=== PATIENT | female | born 1985 | race Caucasian/White ===

== ENCOUNTER 2016-08-26 14:59 | Emergency (ER) | payer OTHER ==
[~2016-08-26] VITALS: Ht 162.6 cm; Wt 75.7 kg
[~2016-08-26 14:59] MED LIST: SYNTHROID0.075 MG PO
[2016-08-26 15:14] VITALS: BP 120/80
--- NOTE | 2016-08-26 15:50 | NUR ---
PATIENT TO BED 6 AT THIS TIME.
--- NOTE | 2016-08-26 15:52 | NUR ---
30/F BIB SELF C/O N/V/D ; MULTIPLE EPISODES, FATIGUED, SUBJECTIVE FEVER X 1 DAY. HX OF DM, HYPOTHYROID, POLYCYSTIC OVARIAN DISEASE.SKIN IS PINK/WARM/DRY; AAOX4 WITH EVEN AND STEADY GAIT; LUNGS CLEAR BL; HR EVEN AND REGULAR; PT DENIES ANY CP, SOB, OR COUGH AT THIS TIME; PATIENT STATES PAIN OF 0/10 AT THIS TIME; VSS; PATIENT POSITIONED FOR COMFORT; HOB ELEVATED; BEDRAILS UP X2; BED DOWN. ER MD MADE AWARE OF PT STATUS.
--- NOTE | 2016-08-26 15:55 | NUR ---
ER MD DR MEDRANO EVALUATING PT AT BEDSIDE
[2016-08-26] MEDS ORDERED: HYDROcodone/APAP 5/325 MG 1 TAB TAB PO ONE (16:05)
[2016-08-26] MEDS ORDERED: ONDANSETRON 4 MG ODT PO ONE (16:05)
[2016-08-26] MEDS ORDERED: METOCLOPRAMIDE 10 MG TAB PO ONE (16:30)
--- NOTE | 2016-08-26 16:35 | NUR ---
LAB AT BEDSIDE
--- NOTE | 2016-08-26 16:36 | NUR ---
PO CHALLENGE; GAVE FLUID TO PT. PT NAUSEAED; ER MD DR MEDRANO NOTIFIED.
[2016-08-26] MEDS ORDERED: LIDOCAINE VISCOUS 2% 20 ML UDC PO ONE (17:25)
[2016-08-26] MEDS ORDERED: ALUMINUM HYD/MAG/SIMETHICONE 30 ML UDC PO ONE (17:25)
[2016-08-26 18:55] VITALS: BP 102/70
== END 2016-08-26 18:55 | disposition home or self-care (01) ==
LOC: MED 14:59
DX: R11.2 Nausea with vomiting, unspecified (principal); E11.9 Type 2 diabetes mellitus without complications; R10.32 Left lower quadrant pain; R50.9 Fever, unspecified; Z98.890 Other specified postprocedural states
CPT/HCPCS: 36415; 74000; 80053; 81001; 81025; 82948; 83690; 85025; 99285; J8597; S0119